=== PATIENT | female | born 1940 | race Caucasian/White ===

== ENCOUNTER 2018-04-27 20:29 | Inpatient (IN) ==
[2018-04-27] MEDS ORDERED: Morphine Inj 4 MG/ML Vial ONE (20:33)
[2018-04-27] MEDS ORDERED: Diphtheria/Tetanus/Pertussis Vaccine Inj 0.5 ML Syringe IM ONE (20:33)
[2018-04-27] MEDS ORDERED: ceFAZolin 2 GM Premix Inj 2 GM/50 ML PIGGYBACK IV.SIG ONE (20:33)
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
[2018-04-27 20:59] LABS: Baso % (Auto) 0.2 % (0.0-2.0); Eos # (Auto) 0.1 th/mm3 (0.0-0.4); Eos % (Auto) 1.2 % (0.0-4.0); Hemoglobin 12.3 gm/dL (11.6-15.3); Lymph # (Auto) 6.1 th/mm3 (1.0-4.8); Lymph % (Auto) 61.6 % (9.0-44.0); Mean Corpuscular Hemoglobin 31.5 pg (27.0-34.0); Mean Corpuscular Volume 92.7 fL (80.0-100.0); Mean Platelet Volume 8.1 fL (7.0-11.0); Mono # (Auto) 0.4 th/mm3 (0.0-0.9); Mono % (Auto) 4.1 % (0.0-8.0); Neut # (Auto) 3.3 th/mm3 (1.8-7.7); Neut % (Auto) 32.9 % (16.0-70.0); Platelet Count 137 th/mm3 (150-450); Red Blood Count 3.89 mil/mm3 (4.00-5.30); Red Cell Distribution Width 14.1 % (11.6-17.2); White Blood Count 9.9 th/mm3 (4.0-11.0)
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
[2018-04-27 21:15] LABS: Activated Partial Thrombo Time 19.7 sec (23.4-31.7); INR 1.1 Ratio; Prothrombin Time 11.1 sec (9.8-11.6)
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
[2018-04-27] MEDS ORDERED: HYDROmorphone PF Inj 2 MG/ML Vial IV.PUSH PRN (21:24)
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
[2018-04-27 21:49] LABS: Eosinophils 1 % (0-4); Lymphocytes 61 % (9-44); Monocytes 2 % (0-8)
[2018-04-27 21:50] LABS: Platelet Morphology Normal (Normal); RBC Morphology Normal (Normal); Smudge Cells Present
[2018-04-27] MEDS: Sod Chloride 0.9% Inj 1,000 ML IV.CONT SCH (21:59)
[2018-04-27] MEDS ORDERED: Pantoprazole Inj 40 MG Vial IV.PUSH SCH (22:00)
[2018-04-27] MEDS: Docusate Sodium 100 MG Capsule PO SCH (22:18)
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
[2018-04-28] MEDS ORDERED: Chlorhexidine Gluconate 2% 1 Pack (2 Cloths) TOPICAL SCH (04:00)
[2018-04-28] MEDS ORDERED: Chlorhexidine Gluconate 2% 1 Pack (2 Cloths) TOPICAL PRN (04:00)
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
[2018-04-28] MEDS: Sod Chloride 0.9% Inj 1,000 ML IV.CONT SCH ×2 (06:37→18:22)
[2018-04-28] MEDS ORDERED: Morphine Inj 4 MG/ML Vial IV.PUSH PRN (06:40)
[2018-04-28] MEDS: Docusate Sodium 100 MG Capsule PO SCH ×2 (08:08→20:52)
[2018-04-28] MEDS: Methocarbamol 500 MG Tablet PO SCH ×3 (08:09→21:17)
[2018-04-28 08:34] LABS: Baso % (Auto) 0.1 % (0.0-2.0); Eos % (Auto) 0.2 % (0.0-4.0); Hematocrit 30.9 % (35.0-46.0); Hemoglobin 10.6 gm/dL (11.6-15.3); Lymph # (Auto) 3.2 th/mm3 (1.0-4.8); Lymph % (Auto) 40.4 % (9.0-44.0); Mean Corpuscular HGB Conc 34.2 % (32.0-36.0); Mean Corpuscular Hemoglobin 32.5 pg (27.0-34.0); Mean Platelet Volume 7.8 fL (7.0-11.0); Mono # (Auto) 0.5 th/mm3 (0.0-0.9); Mono % (Auto) 6.7 % (0.0-8.0); Neut # (Auto) 4.2 th/mm3 (1.8-7.7); Neut % (Auto) 52.6 % (16.0-70.0); Platelet Count 113 th/mm3 (150-450); Red Blood Count 3.26 mil/mm3 (4.00-5.30); White Blood Count 7.9 th/mm3 (4.0-11.0)
[2018-04-28] MEDS: Lidocaine 5% Patch T-DERMAL SCH (08:47)
[2018-04-28] MEDS: Sodium Chloride 0.9% 2 ML Flush BID IV.FLUSH SCH ×2 (08:50→20:52)
[2018-04-28] MEDS: Polyethylene Glycol 3350 17 GM Packet PO SCH (08:50)
[2018-04-28 08:56] LABS: Calcium 8.3 mg/dL (8.5-10.1); Carbon Dioxide 27.1 meq/L (21.0-32.0); Potassium 4.4 meq/L (3.5-5.1)
[2018-04-28] MEDS ORDERED: Atropine Inj 1 MG/10 ML Syringe ONE (15:28)
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
[2018-04-29] MEDS: Methocarbamol 500 MG Tablet PO SCH ×2 (05:32→14:47)
[2018-04-29] MEDS: Sod Chloride 0.9% Inj 1,000 ML IV.CONT SCH (05:52)
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
[2018-04-29 08:18] VITALS: O2SAT 96
[2018-04-29 08:47] VITALS: RESP 16
[2018-04-29] MEDS: Lidocaine 5% Patch T-DERMAL SCH (09:48)
[2018-04-29] MEDS: Docusate Sodium 100 MG Capsule PO SCH (09:49)
[2018-04-29] MEDS: Sodium Chloride 0.9% 2 ML Flush BID IV.FLUSH SCH (09:49)
[2018-04-29] MEDS: Polyethylene Glycol 3350 17 GM Packet PO SCH (09:49)
[2018-04-29 11:38] VITALS: BP 137/60; PULSE 70; TEMP 98.1
--- NOTE | 2018-04-29 12:13 | ECG ---
Date Performed: 04/28/2018 Time Performed: 16:26:34 PTAGE: 89 years EKG: Sinus rhythm RIGHT BUNDLE BRANCH BLOCK ABNORMAL ECG NO PREVIOUS TRACING DOCTOR: Sheldon Valenzuela Interpretating Date/Time 04/29/2018 12:10:27
--- NOTE | 2018-04-29 12:44 | P.DCO ---
- Physical Therapy Order: Evaluate and treat, Improve ambulation - Home Health Nursing Order: Nursing assessment with vital signs - Case Management Consult Case Management Consult-Home Health: Yes - Certification I have seen patient Hannah Saxena on 04/29/18. My clinical findings support the need for the requested home health care services because: Limited mobility due to disease progression I certify that my clinical findings support that this patient is homebound because: Impaired cognitive ability/safety
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
== END 2018-04-29 15:30 | disposition home health service (06) | DRG 184 ==
LOC: NEPI 20:29 → NEDA 20:56 → N03 21:45 → N06 04-28 22:40
PROVIDERS: ADMIT Surgery; ATTEND Surgery
CPT/HCPCS: 70450; 70486; 71010; 71045; 71260; 72125; 72170; 74177; 80048; 82435; 82565; 82947; 84132; 84295; 84520; 85025; 85610; 85730; 86850; 86900; 86901; 87641; 90715; 93005; 94150; 94640; 94664; 94665; 97110; 97162; 97166; 97530; 99285; C9113; J0171; J0461; J0690; J1170; J2270; J2405; J7030; Q9967